=== PATIENT | female | born 1950 | race Caucasian/White ===

== ENCOUNTER 2020-08-11 06:40 | Day surgery (SDC) | payer MEDICARE, OTHER ==
[2020-08-09 11:10] LABS: BASOPHILS % (AUTO) 1 % (0-1); EOSINOPHILS % (AUTO) 2 % (1-7); LYMPHOCYTES % (AUTO) 25 % (22-44); MEAN CORPUSCULAR HEMOGLOBIN 30.7 pg (27.0-34.8); MEAN PLATELET VOLUME 8.4 fL (7.4-10.4); MONOCYTES % (AUTO) 6 % (2-9); NEUTROPHILS % (AUTO) 66 % (42-75); PLATELET COUNT 192 x10^3/uL (130-400); RED BLOOD COUNT 4.55 x10^6/uL (3.82-5.3); RED CELL DISTRIBUTION WIDTH 13.7 % (9.6-15.2)
[2020-08-09 11:13] LABS: MD NO
[2020-08-09 11:20] LABS: ANION GAP 4 mmol/L (5-15); CALCIUM 9.5 mg/dL (8.5-10.1); CHLORIDE 113 mmol/L (98-107); INTERNATIONAL NORMALIZED RATIO 0.98 (0.93-1.1); PROTHROMBIN TIME 10.5 Seconds (9.6-11.5)
[~2020-08-11] VITALS: Ht 157.5 cm; Wt 119.1 kg
[~2020-08-11 06:40] MED LIST: ACET-76 PO; CHOL10003 PO; EPINEPHRINE 1 MG/ML, 1ML ONE; EZET10TA70 PO; FAMO-79 PO; IBUP-1623 PO; KETOROLAC 60 MG/2 ML ONE; LACT1CAP35 PO; LYSI500T25 PO; MAGN400C PO; MULT-308 PO; OMEG1CAP34 PO; ROPIvacaine/PF 0.2%, 20 ML ONE; ROPIvacaine/PF 0.5%, 30 ML ONE; Rolaids PO; SODIUM CHLORIDE 0.9% 50 ML ONE; THYR120T PO; TRANEXAMIC ACID 100 MG/ML, 10ML ONE; TURM500C4 PO; VANCOMYCIN 1,000 MG ONE; [UNRECOGNIZED DRUG - OTHER] PO
[2020-08-11] MEDS ORDERED: HYDROcodone/APAP 5/325 TABLET PO PRN (07:00)
[2020-08-11] MEDS ORDERED: SENNA/DOCUSATE TABLET PO PRN (07:00)
[2020-08-11] MEDS ORDERED: BISACODYL 10 MG SUPP PR PRN (07:00)
[2020-08-11] MEDS ORDERED: ACETAMINOPHEN 650 MG/20.3 ML UDC PO PRN (07:00)
[2020-08-11] MEDS ORDERED: ONDANSETRON 2MG/ML, 2ML IV PRN (07:00)
[2020-08-11] MEDS ORDERED: HYDROmorphone 1 MG/ML, 1ML INJ IV PRN (07:00)
[2020-08-11] MEDS ORDERED: NS + 20MEQ KCL 1,000 ML IV SCH (07:00)
[2020-08-11] MEDS ORDERED: MAGNESIUM HYDROXIDE 8%, 30ML UDC PO PRN (07:00)
[2020-08-11] MEDS ORDERED: CEFAZOLIN PMX 2GM/50ML 50 ML IVPB SCH (07:00)
[2020-08-11] MEDS ORDERED: DIPHENHYDRAMINE 50 MG CAPSULE PO PRN (07:00)
[2020-08-11] MEDS ORDERED: ONDANSETRON 4 MG TABLET PO PRN (07:00)
[2020-08-11] MEDS ORDERED: OXYcodone IR 5MG TABLET PO PRN (07:00)
[2020-08-11] MEDS ORDERED: ZOLPIDEM 5MG TABLET PO PRN (07:00)
[2020-08-11] MEDS ORDERED: LABETALOL 5MG/ML, 20ML IV PRN (07:30)
[2020-08-11] MEDS ORDERED: EPHEDRINE 50 MG/ML, 1ML IVPush PRN (07:30)
[2020-08-11] MEDS ORDERED: ACETAMINOPHEN 500 MG TABLET PO ONE (07:30)
[2020-08-11] MEDS ORDERED: ONDANSETRON 2MG/ML, 2ML IVPush PRN (07:30)
[2020-08-11] MEDS ORDERED: hydrALAzine 20 MG/ML, 1ML IV PRN (07:30)
[2020-08-11] MEDS ORDERED: CHLORHEXIDINE 15 ML UDC MM ONE (07:30)
[2020-08-11] MEDS ORDERED: PROMETHAZINE 25 MG/ML, 1ML IVPush PRN (07:30)
[2020-08-11] MEDS ORDERED: LACTATED RINGERS 1,000 ML IV SCH (07:30)
[2020-08-11 07:34] VITALS: BP 160/82
[2020-08-11] MEDS ORDERED: FENTANYL PF 250 MCG/5ML ONE (07:35)
[2020-08-11] MEDS ORDERED: BUPIVACAINE/PF 0.5% ONE (08:44)
[2020-08-11] MEDS ORDERED: SODIUM CHLORIDE 0.9% PF 10ML ONE (08:44)
[2020-08-11] MEDS ORDERED: LIDOCAINE-MPF 2% ,5ML ONE (08:44)
[2020-08-11] MEDS ORDERED: ONDANSETRON 2MG/ML, 2ML ONE (08:44)
[2020-08-11] MEDS ORDERED: DEXAMETHASONE 4 MG/ML, 1ML ONE (08:44)
[2020-08-11] MEDS ORDERED: PROPOFOL 10 MG/ML, 20ML ONE (08:44)
[2020-08-11] MEDS ORDERED: SUCCINYLCHOLINE 20 MG/ML, 10ML ONE (08:44)
[2020-08-11] MEDS ORDERED: CEFAZOLIN 1,000 MG ONE (08:44)
[2020-08-11] MEDS ORDERED: THYROID PO SCH (09:00)
[2020-08-11] MEDS ORDERED: DOCUSATE 100 MG CAPSULE PO SCH (09:00)
[2020-08-11] MEDS ORDERED: hydrALAzine 20 MG/ML, 1ML ONE ×2 (09:15→09:16)
[2020-08-11] MEDS ORDERED: FENTANYL PF 100 MCG/2ML ONE ×2 (10:07→10:27)
[2020-08-11] MEDS: FENTANYL PF 100 MCG/2ML IV PRN ×6 (10:08→11:02)
[2020-08-11] MEDS ORDERED: OXYcodone 5 MG/5 ML ORAL.SOL UDC ONE ×2 (10:28→11:08)
[2020-08-11] MEDS: OXYcodone 5 MG/5 ML ORAL.SOL UDC PO PRN ×2 (10:30→11:09)
[2020-08-11] MEDS ORDERED: METHOCARBAMOL 1,000 MG in DEXTROSE 5% 100 ML IV ONE (11:00)
[2020-08-11] MEDS ORDERED: HYDROmorphone 1 MG/ML, 1ML INJ ONE (11:08)
[2020-08-11] MEDS: HYDROmorphone 1 MG/ML, 1ML INJ IVPush PRN ×2 (11:12→11:50)
[2020-08-11] MEDS ORDERED: ASPIRIN 81 MG TABLET EC PO SCH (18:00)
[2020-08-11] MEDS ORDERED: EZETIMIBE 10 MG TABLET PO SCH (21:00)
[2020-08-12] MEDS ORDERED: DEXAMETHASONE 4 MG/ML, 1ML IVPush SCH (06:00)
== END 2020-08-11 14:40 | disposition home or self-care (01) ==
LOC: OUT 06:40
PROVIDERS: ATTEND Orthopaedic Surgery
DX: M17.11 Unilateral primary osteoarthritis, right knee (principal); M25.761 Osteophyte, right knee; G89.18 Other acute postprocedural pain; K21.9 Gastro-esophageal reflux disease without esophagitis; E03.9 Hypothyroidism, unspecified; J45.909 Unspecified asthma, uncomplicated; Z20.822 Contact with and (suspected) exposure to COVID-19; Z79.01 Long term (current) use of anticoagulants; Z79.1 Long term (current) use of non-steroidal anti-inflammatories (NSAID); Z79.890 Hormone replacement therapy; Z79.899 Other long term (current) drug therapy; Z88.8 Allergy status to other drugs, medicaments and biological substances; Z82.61 Family history of arthritis; Z82.3 Family history of stroke; Z82.49 Family history of ischemic heart disease and other diseases of the circulatory system
CPT/HCPCS: 27447; 36415; 64447; 80048; 83036; 85025; 85610; 85730; 87081; 93005; 97110; 97161; 97165; 97530; 97535; C1713; C1776; J0171; J0330; J0360; J0690; J1100; J1170; J1885; J2405; J2704; J2795; J2800; J3010; J3370; J7120; U0003